=== PATIENT | male | born 1990 | race Hispanic/Latino ===

== ENCOUNTER 2020-09-20 08:35 | Outpatient (CLI) | payer OTHER ==
--- NOTE | 2020-09-20 09:13 | BD ---
EXAM: Bone densitometry using DEXA HISTORY: Screening for osteoporosis FINDINGS: L1--bone mineral density 0.792 g/sq cm; T score -2.6 ; Z score -2.6 L2--bone mineral density 0.787 g/sq cm; T score -2.8 ; Z score -2.8 L3--bone mineral density 0.749 g/sq cm; T score -3.2 ; Z score -3.2 L4--bone mineral density 0.729 g/sq cm; T score -3.3 ; Z score -3.3 Total L1-L4--bone mineral density 0.763 g/sq cm; T score -3.0 ; Z score -3.0 Left femoral neck--bone mineral density0.674; T score -1.9 ; Z score -2.1 Total proximal left femur--bone mineral density 0.818; T score -1.4 ; Z score -1.7 The 10 year fracture risk for a major osteoporotic fracture is 1.4% and for a hip fracture is 0.2%. IMPRESSION: Osteoporosis
== END 2020-09-20 08:36 | disposition home or self-care (01) ==
LOC: BICMAMMO 08:35
PROVIDERS: ATTEND Family Medicine
DX: M81.8 Other osteoporosis without current pathological fracture (principal)
CPT/HCPCS: 77080